=== PATIENT | female | born 1945 | race Caucasian/White ===

== ENCOUNTER 2019-04-20 12:45 | Emergency (ER) | payer OTHER ==
[~2019-04-20] VITALS: Ht 144.8 cm; Wt 59.0 kg
[2019-04-20] MEDS ORDERED: SIMVASTATIN10 MG (13:03)
[2019-04-20] MEDS ORDERED: SYNTHROID88 MCG (13:03)
[2019-04-20] MEDS ORDERED: SULFASALAZINE500 MG (13:04)
== END 2019-04-20 15:26 | disposition home or self-care (01) ==
LOC: ER 12:45
DX: M25.551 Pain in right hip (principal); M54.5 Low back pain